=== PATIENT | male | born 1985 | race Caucasian/White ===

== ENCOUNTER 2021-05-08 09:00 | Outpatient (CLI) | payer OTHER ==
--- NOTE | 2021-05-08 11:00 | Ultrasound Report ---
PROCEDURE: Abdomen Limited INDICATIONS: ELEVATED LFT'S TECHNIQUE: Real-time focused scanning was performed of the abdomen, with image documentation. COMPARISON: None available. FINDINGS: AORTA: The visualized abdominal aorta is normal. IVC: The visualized IVC is normal. LIVER: The liver is normal in size and contour. No significant abnormality. Increased echogenicity of the liver, compatible hepatic steatosis. PANCREAS: The visualized portions of the pancreas are normal. Gallbladder and biliary tree: No gallbladder wall thickening, pericholecystic fluid, or shadowing g allstones. The common bile duct measures 3.9 mm. RIGHT KIDNEY: Normal in appearance with no hydronephrosis. Measuring 12.1 cm in length. The renal c ortex thickness measures 2.2 cm. No ascites. IMPRESSION: 1.No acute right upper quadrant sonographic abnormality. Reviewed by: Omero Erickson MD on 05/08/2021 10:59 AM [facility] Approved by: Omero Erickson MD on 05/08/2021 10:59 AM [facility] Station ID: [id number]
== END 2021-05-08 09:01 | disposition home or self-care (01) ==
LOC: DI 09:00
PROVIDERS: ATTEND Internal Medicine
DX: R79.89 Other specified abnormal findings of blood chemistry (principal)

== ENCOUNTER 2021-10-12 09:50 | Outpatient (CLI) | payer OTHER ==
[2021-10-12 13:20] VITALS: BP 133/84
--- NOTE | 2021-10-12 13:20 | SLEEP CARE CONSULTATION ---
Information from patient questionnaire entered by Karen Méndez MA. I have reviewed and concur with the information entered by Karen Méndez MA. This document represents the service I personally performed and the decisions made by me, Fabrizio Liz MD, [facility]. History of Present Illness Service Date and Time: 10/12/2021 0950 Reason for Visit: New patient (ONSET 09/28/2021, NO PRIOR, ) Usual bedtime: 10-12 PM Time it takes to fall asleep: 5-10 MINUTES Observed to quit breathing while asleep: No Sleeps alone due to snoring: No Number of times waking at night: 1 Toss, Turn, or Twitch while sleeping: Yes Recalls having dreams: Yes Usually gets out of bed at: 5-6 Feels refreshed in the morning: Yes Morning headache: No Ever fallen asleep while driving: No Takes day naps: Yes Dreams during day naps: Yes Prior sleep studies: No Additional HPI information: I had the pleasure of seeing Mr. Stovall today regarding the possibility of him having a sleep disorder. As you know, he is a 36-year-old gentleman who complains of nasal congestion from septal deviation. His ENT surgeon recommended surgery but would like to first know whether the patient has obstructive sleep apnea-hypopnea given his body habitus. The patient tells me that he normally goes to bed around 10 pm - midnight, and it takes him approximately 5 - 10 minutes to fall asleep. He has been told that he snores loudly and irregularly at night. He has never been observed to stop breathing in his sleep. His sleeps in the same bed. He can recall waking up on the average of 1 time during the night. He has never awakened because of his own snoring, choking, or having to gasp for air. There is a lot of tossing and turning in his sleep. No somniloquy (sleep talking) or somnambulism (sleep walking). Generally he can recall having dreams. In the morning he usually gets up out of the bed around 5 - 6 a.m. feeling refreshed and rested. He usually does not have a morning headache. During the day he does not feel sleepy or fatigued. His score on Crandall Sleepiness Scale is 8 out of 24. He n ever has fallen asleep while driving nor has had any accident due to sleepiness. He usually takes naps during the day. Upon falling asleep during the day he reports having dreams. He has sleep paralysis. He reports having impaired concentration during the day. 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 Patient is and lives in . Have you smoked in the past 12 months: No Alcohol use: No Caffeine use: No Allergies and Home Medications Drug allergies reviewed: Yes Home medication list reviewed: Yes Review of Systems Review of systems same as previous: Yes Weight gain over past 5 years: 70 Weight loss over past 5 years: 40 Cardiovascular: denies: high blood pressure, palpitations, chest pain, irregular heart rate or pulse, leg or foot swelling, have to sleep sitting up, other Respiratory: denies: shortness of breath, wheeze, sputum production, chronic cough, other Gastrointestinal: denies: heartburn, difficulty swallowing, nausea, vomitting, diarrhea, abdominal pain, other Urinary: denies: incontinence, frequency, urgency, impotence, other Neurological: reports: headaches Psychiatric: denies: Attention Deficit Hyperactivity, anxiety, depression, mood disorder, claustrophobia, other Ear/Nose/Throat: reports: injury to nose, tonsillectomy, wisdom teeth removed Endocrine: denies: thyroid disease, history of goiter, sluggishness, too hot or cold, excessive thirst, increased appetite, increased urination, unexplained weakness, other Musculoskeletal: denies: joint pain, neck pain, back pain, joint swelling, muscle pain or cramping, mobility problems, other Immunologic: reports: allergies to food or environment Physical Exam Vital signs obtained and entered by: Lluvia MÉNDEZ CMA [facility] Blood Pressure: 133/84 (RESP 18, PULSE 80, LEFT) Cuff size: wrist Heart Rate: 77 O2 Saturation: 97 Height: 5 ft 7 in Weight: 343 lb 8 oz (CLOTHES) Body Mass Index: 53.8 BMI Classification: Morbidly Obese Neck circumference: 16.5 (INCHES) Mood/affect: normal HEENT: No craniofacial malformation Nostrils: partially obstructed Turbinates: normal Septum: deviated left (and right) Mouth and throat: narrow oropharynx Soft palate: long Hard palate: normal Uvula: long Uvula visualization: 25% Mallampati Class III Tongue: normal in size Tonsils: absent bilaterally Chin and jaw: normal size and position Neck: normal w/o lymphadenopathy or thyromegaly Heart: regular rate and rhythm Lungs: clear bilaterally Extremities: no edema or clubbing Neurologic: intact Impression and Plan IMPRESSION: 1. Obstructive Sleep Apnea-Hypopnea Syndrome, as suggested by history of loud and irregular snoring and cognitive impairment. Narrow oropharynx and obesity are common predisposing factors for obstructive sleep apnea-hypopnea syndrome. I recommend proceeding to polysomnography to confirm the diagnosis and to assess severity. I informed the patient of what the sleep studies involve and after some discussion, he agreed to proceed. Plan: 1. Schedule polysomnography and return in 1 to 2 weeks after the study to discuss result and initiate therapy. 2. Avoid long distance driving or when feeling sleepy. 3. Avoid alcohol, sedative and muscle relaxant around bedtime. 4. Attempt to lose weight. Follow up with Sleep Care in: 1-2 months Follow up recommended for: Weight management Visit Type: In Office Time Spent with Patient (minutes): 20 Provider Statement: I spent 100% of the Face to Face Visit with the patient with greater than 50% spent counseling the patient and coordination of care.
== END 2021-10-12 09:51 | disposition home or self-care (01) ==
LOC: SC 09:50
PROVIDERS: ATTEND Internal Medicine Pulmonary Disease
DX: R06.83 Snoring (principal); E11.9 Type 2 diabetes mellitus without complications; E66.01 Morbid (severe) obesity due to excess calories; Z68.43 Body mass index [BMI] 50.0-59.9, adult
CPT/HCPCS: 99202; 99212

== ENCOUNTER 2023-03-07 10:49 | Outpatient (CLI) | payer OTHER | END 2023-03-07 10:50 | disposition home or self-care (01) | LOC: NS 10:49 | PROVIDERS: ATTEND Internal Medicine Pulmonary Disease | DX: Z71.3 Dietary counseling and surveillance (principal); E11.9 Type 2 diabetes mellitus without complications | CPT/HCPCS: 97802 ==